=== PATIENT | female | born 1970 | race Caucasian/White ===

== ENCOUNTER 2020-01-02 12:55 | Emergency (ER) | payer OTHER ==
[~2020-01-02] VITALS: Ht 167.6 cm; Wt 74.8 kg
[2020-01-02 12:56] VITALS: BP 118/70
--- NOTE | 2020-01-02 12:58 | NUR ---
DR PAREDES EVALUATING PT AT TIME: [id number]
--- NOTE | 2020-01-02 13:00 | NUR ---
PT BIB SELF C/O STATES SUBJECTIVE FEVER, INITIAL DRY COUGH THAT IS NOW PRODUCTIVE, SORE THROAT, BODY ACHES, NASAL CONGESTION. DENIES TRAVEL OR COVID CONTACT HX. ER MD DR REGGIE PICKARD PT IN TENT WITH JED KHALIL AND JED DARLING. PT DENIES N/V/D; SKIN IS INTACT, PINK/WARM/DRY; AAOX4, PERRL, WITH EVEN AND STEADY GAIT; LUNGS CLEAR BL, BREATHING UNLABORED; HR EVEN AND REGULAR, BL PERIPHERAL PULSES PRESENT; BS ACTIVE X4, NO TENDERNESS TO PALPATION. PT STATES 8/10 PAIN AT THIS TIME; VSS; PATIENT POSITIONED FOR COMFORT; HOB ELEVATED; BEDRAILS UP X2; BED DOWN.
[2020-01-02 13:18] VITALS: BP 120/68
--- NOTE | 2020-01-02 13:21 | NUR ---
HOME ISOLATION INSTRUCTION PAPPER WORK FOR COVID-19 GIVEN.
== END 2020-01-02 13:19 | disposition home or self-care (01) ==
LOC: MED 12:55
DX: J06.9 Acute upper respiratory infection, unspecified (principal)
CPT/HCPCS: 99281

== ENCOUNTER 2020-04-05 16:03 | Emergency (ER) | payer OTHER ==
[~2020-04-05] VITALS: Ht 167.6 cm; Wt 79.4 kg
[2020-04-05 16:09] VITALS: BP 139/96
--- NOTE | 2020-04-05 16:18 | NUR ---
PT AMBULATED TO ER BED 04
--- NOTE | 2020-04-05 16:20 | NUR ---
PT C/O SHARP RIGHT LOWER RIB PAIN S/P TRIP & FALL X 4 DAYS AGO. PT TOOK IBUPROFEN NEEDED W/ SOME RELIEF. NO BRUISING, EDEMA, ERYTHEMA, OR DEFORMITY NOTICED ON THE AFFECTED AREA. PT IS AAOX4 WITH EVEN AND STEADY GAIT; LUNGS CLEAR BL; HR EVEN AND REGULAR; PT DENIES ANY FEVER, CP, SOB, OR COUGH AT THIS TIME; PATIENT STATES PAIN OF 8/10 AT THIS TIME; VSS; PATIENT POSITIONED FOR COMFORT; HOB ELEVATED; BEDRAILS UP X1; BED DOWN. ER MD MADE AWARE OF PT STATUS.
--- NOTE | 2020-04-05 16:43 | NUR ---
GUERLINE MARIA IS EVALUATING PT AT BEDSIDE.
[2020-04-05 17:37] VITALS: BP 128/91
--- NOTE | 2020-04-05 17:37 | NUR ---
Patient discharged with v/s stable. Written and verbal after care instructions given and explained. Patient alert, oriented and verbalized understanding of instructions. Ambulatory with steady gait. All questions addressed prior to discharge. ID band removed. Patient advised to follow up with PMD. Rx of TRAMADOL, FLEXERIL given. Patient educated on indication of medication including possible reaction and side effects. Opportunity to ask questions provided and answered.
== END 2020-04-05 17:37 | disposition home or self-care (01) ==
LOC: MED 16:03
DX: S20.20XA Contusion of thorax, unspecified, initial encounter (principal); R03.0 Elevated blood-pressure reading, without diagnosis of hypertension; R05 Cough; W01.190A Fall on same level from slipping, tripping and stumbling with subsequent striking against furniture, initial encounter; Y93.01 Activity, walking, marching and hiking; Y92.89 Other specified places as the place of occurrence of the external cause; Y99.8 Other external cause status
CPT/HCPCS: 71101; 81002; 81025; 99283

== ENCOUNTER 2022-03-21 23:54 | Emergency (ER) | payer OTHER ==
[~2022-03-21] VITALS: Ht 167.6 cm; Wt 81.6 kg
[2022-03-22 00:07] VITALS: BP 138/74
--- NOTE | 2022-03-22 01:28 | NUR ---
PER ADMITTING, PT LEFT AFTER SAYING SHE COULDN'T WAIT.
== END 2022-03-22 01:28 | disposition left against medical advice (07) ==
LOC: MED 23:54
DX: R10.30 Lower abdominal pain, unspecified (principal); Z53.21 Procedure and treatment not carried out due to patient leaving prior to being seen by health care provider

== ENCOUNTER 2022-04-10 10:47 | Emergency (ER) | payer OTHER ==
[~2022-04-10] VITALS: Ht 167.6 cm; Wt 81.6 kg
[2022-04-10 11:14] VITALS: BP 117/81
--- NOTE | 2022-04-10 12:45 | NUR ---
PATIENT LEFT WITHOUT BEING SEEN BY DR. CHRISTY. NO FURTHER CARE PROVIDED FOR PATIENT.
== END 2022-04-10 12:45 | disposition left against medical advice (07) ==
LOC: MED 10:47
DX: R10.2 Pelvic and perineal pain (principal); Z53.21 Procedure and treatment not carried out due to patient leaving prior to being seen by health care provider

== ENCOUNTER 2023-11-09 06:01 | Emergency (ER) | payer MEDICAID, OTHER ==
[~2023-11-09] VITALS: Ht 167.6 cm; Wt 80.7 kg
[2023-11-09 06:08] VITALS: BP 144/96; PULSE 103; RESP 18; TEMP 97.8; O2SAT 99
[2023-11-09 08:26] LABS: BASOPHILS % (AUTO) 0.4 % (0.0-2.0); EOSINOPHILS # (AUTO) 0.2 K/uL (0-0.4); HEMATOCRIT 38.4 % (36-48); LYMPHOCYTES # (AUTO) 1.8 K/uL (2.5-16.5); MEAN CORPUSCULAR HEMOGLOBIN 29 pg (27-31); MEAN CORPUSCULAR HGB CONC 34 g/dL (33-37); MEAN CORPUSCULAR VOLUME 86.9 fL (80-94); MONOCYTES # (AUTO) 0.6 K/uL (0.8-1.0); MONOCYTES % (AUTO) 6.9 % (1.7-9.3); NEUTROPHILS # (AUTO) 5.6 K/uL (1.8-7.7); NEUTROPHILS % (AUTO) 68.7 % (42.2-75.2); PLATELET COUNT (AUTO) 337 K/uL (140-450); RED BLOOD CELL COUNT(AUTO) 4.42 MIL/uL (4.20-5.40); RED CELL DISTRIBUTION WIDTH 12.9 % (11.6-13.7); WHITE BLOOD COUNT (AUTO) 8.2 K/uL (4.8-10.8)
[2023-11-09 08:34] LABS: ANION GAP 11.3 (8-16); CALCIUM 8.7 mg/dL (8.5-10.1); CARBON DIOXIDE 27.6 mmol/L (21-32); CREATININE 0.6 mg/dL (0.6-1.3); POTASSIUM 3.9 mmol/L (3.5-5.1)
[2023-11-09 08:45] LABS: LACTIC ACID 0.7 mmol/L (0.4-2.0)
[2023-11-09] MEDS ORDERED: KETOROLAC 30 MG/ML VIAL IVP ONE (09:10)
[2023-11-09] MEDS ORDERED: KETOROLAC 30 MG/ML VIAL ONE (12:17)
[2023-11-09] MEDS ORDERED: CLINDAMYCIN 600 MG/4 ML VIAL IV ONE (12:30)
[2023-11-09] MEDS ORDERED: CLIN300C61 PO (13:41)
[2023-11-09] MEDS ORDERED: ACET-8905 PO (13:42)
[2023-11-09] MEDS ORDERED: CLINDAMYCIN 600 MG/4 ML VIAL ONE (14:06)
[2023-11-09 15:56] VITALS: BP 130/72; PULSE 85; RESP 20; TEMP 98.3; O2SAT 99
== END 2023-11-09 15:58 | disposition home or self-care (01) ==
LOC: MED 06:01
DX: L03.115 Cellulitis of right lower limb (principal); R50.9 Fever, unspecified; Z79.899 Other long term (current) drug therapy
CPT/HCPCS: 36415; 73701; 80048; 83605; 85025; 85651; 86140; 87040; 96374; 99285; J1885; J3490; Q9967